=== PATIENT | male | born 1945 | race Caucasian/White ===

== ENCOUNTER 2018-05-06 10:29 | Observation (INO) | payer BC ==
[2018-05-06] VITALS (18 sets, daily range): BP systolic 124–159; BP diastolic 38–84
[~2018-05-06] VITALS: Ht 182.9 cm; Wt 104.3 kg
--- NOTE | ~2018-05-06 | H ---
[address] [address] HISTORY AND PHYSICAL Name: ANGEL JONES Room: [address] Dominik Eli#: [id number] Admission: 05/06/18 Attend Phys: Mehul Fox MD Discharge: 05/07/18 Date of : 47 Report #: [id number] THIS REPORT FOR: //name// Please refer to the History and Physical performed in the physician's office. By: 0658Medical Records Staff ISABEL /BROOKE
[2018-05-06 12:53] LABS: HEMATOCRIT 47.8 % (42.0-52.0); HEMOGLOBIN 16.5 gm/dL (14.0-18.0); MCH 32.2 pg (26.0-34.0); MCHC 34.5 g/dL (28.0-37.0); MCV 93.2 fL (80.0-100.0); MPV 8.3 fl. (7.2-11.1); RBC 5.13 mil/uL (4.50-6.00); RDW-CV 13.9 % (10.5-14.5); WBC 10.2 thou/uL (4.0-11.0)
[2018-05-06 13:04] LABS: ANION GAP 8 mmol/L (7-16); BUN 13 mg/dL (7-18); CALCIUM 8.9 mg/dL (8.5-10.1); CHLORIDE 100 mmol/L (98-107); CO2 27 mmol/L (21-32); GLUCOSE 111 mg/dL (70-99); POTASSIUM 3.9 mmol/L (3.5-5.1); SODIUM 135 mmol/L (136-145)
[2018-05-06] MEDS ORDERED: KAPSPARGO SPRIN50 MG PO (13:04)
[2018-05-06] MEDS ORDERED: DILTIAZEM 24HR120 M2 PO (13:04)
[2018-05-06 13:05] LABS: APTT 29.8 Seconds (25.0-31.3); INR 1.1; PROTIME 11.1 Seconds (9.20-11.50)
[2018-05-06] MEDS ORDERED: ATORVASTATIN CA40 MG PO (13:05)
[2018-05-06] MEDS ORDERED: PROPAFENONE HC425 MG PO (13:05)
[2018-05-06] MEDS ORDERED: ASPIR 8181 MG PO (13:06)
[2018-05-06 13:08] LABS: ALBUMIN 4.1 g/dL (3.4-5.0); ALKALINE PHOSPHATASE 92 U/L (46-116); CHOLESTEROL 145 mg/dL (<200); HDL CHOLESTEROL 55 mg/dL (>40); LDL CHOLESTEROL 65 mg/dL (<100); SGOT 16 U/L (15-37); SGPT 42 U/L (30-65); TC:HDL 2.6 Ratio (Not establshd); TOTAL BILIRUBIN 0.9 mg/dL (<0.1-1.0); TOTAL PROTEIN 7.4 g/dL (6.4-8.2); TRIGLYCERIDE 127 mg/dL (<150); VLDL 25 mg/dL (<40)
[2018-05-06 13:09] LABS: SERUM ASSESSMENT Clear
--- NOTE | 2018-05-06 16:52 | CARD ---
[address] [address] CARDIAC CATH REPORT Name: ANGEL JONES Room: [address] MJefferyRJeffery#: [id number] Admission: 05/06/18 Attend Phys: Mehul Fox MD Discharge: Date of : 47 Report #: [id number] THIS REPORT FOR: //name// APPROVED REPORT Study performed: 05/06/2018 13:54:46 Patient Details The patient is a 72 year-old male Event Personnel Mehul Fox Sanipractic Physician, Mariola Cummings RN Shoe Reconditioner, Israel Nuno (R) Monitor, Senia Montaño RTR Scrub, Senia Montaño RTR Scrub, Harvey Meneses Labeler, Mike Reyes Monitor Procedures Performed Left Heart Cath w/or w/o Coronaries [id number] [facility] w/wo Plasty Single RCA [id number] Hemostasis w/ Angioseal Indication Positive stress test Risk Factors Obesity, Hypercholesterolemia Admission/Lab Medications/Medications given during procedure Aspirin, Platelet Aff. Inhib., Angiomax bolus and infusion Procedure Narrative The patient was brought electively to the Cardiac Catheterization Laboratory and was prepped and draped in a sterile manner. The right wrist was infiltrated with 2% Lidocaine subcutaneous anesthesia. A Broadalbin 6 FR sheath was inserted into the RFA. Coronary angiography was performed using coronary diagnostic catheters. The right coronary system was accessed and visualized with a TIG Diagnostic catheter. The left coronary system was accessed and visualized with a TIG Diagnostic catheter. The left ventricle was accessed and visualized with a Diagnostic catheter. Left ventricular/Aortic Valve gradient assessed via catheter pullback. Pre-demployment femoral angiogram was performed . The patient tolerated the procedure well and there were no complications associated with the procedure. There was no hematoma[place] [address] CARDIAC CATH REPORT Name: ANGEL JONES Room: [address] M.R.#: [id number] Admission: 05/06/18 Attend Phys: Mehul Fox MD Discharge: Date of : 47 Report #: [id number] Fentanyl 75 mcg Fluoro Time: 30.3 minutes Dose: DAP 978144 cGycm2 140 mGy Contrast Type and Amount: Visipaque 320 ml Diagnostic Cath Left Main 0% narrowing LAD 20% mid LAD narrowing Circumflex 30% mid circumflex narrowing Right Coronary 95% mid right coronary stenosis surrounding the acute margin Left Ventriculography The left ventricle is normal in size with normal contractility. The left ventricular ejection fraction is estimated to be 65-70%. Left ventricular wall motion abnormalities are not present. There is no mitral insufficiency. Hemodynamics The aortic pressure is 123/63 mmHg with a mean of 89 mmHg. The left ventricular pressure is 102/-1 mmHg with a mean of mmHg. The left ventricular end diastolic pressure is 10 mmHg. There was no gradient across the aortic valve upon pullback. PCI Technique Lesion Anticoagulation was achieved with Angiomax. Percutaneous coronary intervention was performed on the mid right coronary artery. The lesion stenosis prior to intervention was 95% with ANGELITO 2 flow. A 6F 3DRC Guide Catheter was used to engage the ostium. A IG: BMW 190cm Interventional Guidewire was used to cross the lesion. BALLOON DILATION A Balloon catheter NC Trek RX 3.0 X 12 was inserted and inflated up to 16.00atm for 9seconds. STENT DEPLOYMENT A stent Xience Erica 2.5X28mm was inserted and inflated up to 20.00atm for 6seconds. POST STENT DEPLOYMENT BALLOON DILATION A Balloon catheter NC Trek RX 3.0 X 12 was inserted and inflated up to 14-20atm for 10seconds. Final angiography reveals 0 % stenosis with [place]GELITO 3 [place] [address] CARDIAC CATH REPORT Name: ANGEL JONES Room: [address]#: [id number] Admission: 05/06/18 Attend Phys: Mehul Fox MD Discharge: Date of : 47 Report #: [id number] COMMENTS The severely stenosed mid right coronary artery was dilated with a 1.2 x 12 and subsequently a 2.0 x 12 balloons and prior to stent deployment Conclusion #1 significant coronary artery disease characterized by the following: A 95% irregular stenosis of the mid right coronary artery surrounding the acute margin B 20% mid LAD narrowing C 30% midcircumflex narrowing #2 normal left ventricular systolic function, estimated ejection fraction being 65-70% #3 normal left-sided hemodynamic study #4 successful percutaneous coronary intervention with deployment of a drug-eluting stent at the site of 95% mid right coronary stenosis with 0% residual narrowing and ANGELITO-3 flow to the distal vessel Recommendations Cardiac Risk Reduction Program Aggressive Medical Therapy Medications Administered Aspirin (any) Prasugrel Diagnostic Cath Approved by: Mehul Fox MD Date/Time: 05/06/2018 16:51:55 <ELECTRONICALLY SIGNED> By: Harvey Meneses MD, FACC 05/06/181651 51 51Harvey Meneses MD, FACC /INF
--- NOTE | 2018-05-06 17:46 | NUR ---
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 PT HAS CATH SITE AT RIGHT GROIN, SITE IS SOFT WITH CLEAN DRESSING. PT WAS EDUCATED ON KEEPING LEG STRAIGHT AND LYING FLAT. PT ALSO HAS SITE AT RIGHT WRIST THAT WAS ACCESSED BUT DR MARTÍNEZ FELT THE SITE WAS NOT RELIABLE AND WENT THROUGH THE GROIN. LS CTA, BS ACTIVE X4, PEDAL PULSES NORMAL. PT ORIENTED TO ROOM AND CALL LIGHT, POST CATH VS TO BE COMPLETED. PT TO LAY FLAT UNTIL 2100.
--- NOTE | 2018-05-06 18:10 | NUR ---
REMOVED AIR FROM R RADIAL. 11ML'S TOTAL. PT MAY HAVE REMOVED AFTER I HOUR.
[2018-05-07 00:30] VITALS: BP 129/73
--- NOTE | 2018-05-07 02:06 | NUR ---
PATIENT RESTED IN BED, NO ACUTE CHANGES. PATIENT DID NOT SHOW SIGNS OF BLEEDING OR DISTRESS. PATIENT DID NOT COMPLAIN OF PAIN. CALL LIGHT WITH IN REACH, HOURLY ROUNDING OBSERVED, BED ALARM ON.
[2018-05-07 04:00] VITALS: BP 135/71
[2018-05-07 05:03] LABS: MCH 32.2 pg (26.0-34.0); MCHC 34.8 g/dL (28.0-37.0); MCV 92.4 fL (80.0-100.0); MPV 8.5 fl. (7.2-11.1); RBC 4.44 mil/uL (4.50-6.00)
[2018-05-07 05:15] LABS: HEMOGLOBIN 14.3 gm/dL (14.0-18.0)
[2018-05-07 05:27] LABS: ALBUMIN 3.1 g/dL (3.4-5.0); CALCIUM 8.3 mg/dL (8.5-10.1); CREATININE 0.8 mg/dL (0.6-1.3); POTASSIUM 3.8 mmol/L (3.5-5.1); TOTAL BILIRUBIN 0.9 mg/dL (<0.1-1.0); TOTAL PROTEIN 5.8 g/dL (6.4-8.2); TROPONIN-I LEVEL 0.54 ng/mL (<0.06)
[2018-05-07 08:00] VITALS: BP 141/74
[2018-05-07 09:30] VITALS: BP 147/82
[2018-05-07 10:09] VITALS: BP 141/74
--- NOTE | 2018-05-07 10:22 | EKG ---
[place] [address] ELECTROCARDIOGRAM REPORT Name: ANGEL JONES [address]: [address]#: [id number] Admission: 05/06/18 Attend Phys: Mehul Fox MD Discharge: Date of : 47 Report #: [id number] THIS REPORT FOR: //name// [facility] Test Date: 2018-05-06 Test Time: 12:53:06 Pat Name: ANGEL JONES Department: Room: [facility] Gender: Meters Superintendent: [facility] : 1945 Requested By: Mehul Fox Order Number: [id number] Loretta MD: Harvey Meneses Measurements Intervals [place] Rate: 69 P: 43 PA: 226 QRS: 12 QRSD: 91 T: 34 QT: 401 QTc: 430 Interpretive Statements Sinus rhythm Prolonged PA interval Low voltage, precordial leads No previous ECG available for comparison Electronically Signed On 05-07-2018 10:22:06 NEUROPSYCHOLOGIST by Harvey Meneses [email or web address] <ELECTRONICALLY SIGNED> By: Harvey Meneses MD, [facility] 05/07/18 1022 1253 1253 Harvey Meneses MD, FACC /EPI
--- NOTE | 2018-05-07 10:24 | EKG ---
[place] [address] ELECTROCARDIOGRAM REPORT Name: ANGEL JONES Room: [address]R.#: [id number] Admission: 05/06/18 Attend Phys: Mehul Fox MD Discharge: Date of : 47 Report #: [id number] THIS REPORT FOR: //name// [facility] Test Date: 2018-05-06 Test Time: 16:42:51 Pat Name: ANGEL DEVINEY Department: Room: [facility] Gender: M Warehouse Receiving Clerk: [facility] : 1945 Requested By: Harvey Meneses Order Number: [id number] Loretta MD: Harvey Meneses Measurements Intervals [place] Rate: 74 P: 52 GA: 218 QRS: 14 QRSD: 89 T: 34 QT: 398 QTc: 442 Interpretive Statements Sinus rhythm Borderline prolonged GA interval Low voltage, precordial leads Consider anterior infarct No previous ECG available for comparison Electronically Signed On 05-07-2018 10:24:15 UNIVERSITY PROFESSOR by Harvey Meneses [email or web address] <ELECTRONICALLY SIGNED> By: Harvey Meneses MD, [facility] 05/07/18 1024 41 41 Harvey Meneses MD, FAC /EPI
--- NOTE | 2018-05-07 10:25 | EKG ---
[place] [address] ELECTROCARDIOGRAM REPORT Name: ANGEL JONES Room: [address]R.#: [id number] Admission: 05/06/18 Attend Phys: Mehul Fox MD Discharge: Date of : 47 Report #: [id number] THIS REPORT FOR: //name// [facility] Test Date: 2018-05-07 Test Time: 04:02:33 Pat Name: ANGELRabia JONES Department: Room: [facility] Gender: M Family Support Worker: XF : 1945 Requested By: Harvey Meneses Order Number: [id number] Loretta MD: Harvey Meneses Measurements Intervals [place] Rate: 77 P: 61 SC: 198 QRS: -8 QRSD: 98 T: 41 QT: 388 QTc: 440 Interpretive Statements Sinus rhythm Inferior infarct, old Consider anterolateral infarct Baseline wander in lead(s) III,aVF No previous ECG available for comparison Electronically Signed On 05-07-2018 10:25:40 LINE CREWMAN by Harvey Meneses [email or web address] <ELECTRONICALLY SIGNED> By: Harvey Meneses MD, [facility] 05/07/18 1025 040 040 Harvey Meneses MD, FACC /EPI
[2018-05-07] MEDS ORDERED: NITROGLYCERIN0.4 MG SUBLING (10:28)
[2018-05-07] MEDS ORDERED: EFFIENT10 MG PO (10:29)
--- NOTE | 2018-05-07 11:19 | NUR ---
VSS, ASSUMED CARE OF PT IN THE AM, ASSESSMENT PERFORMED AND CHARTRED, FALLS PRECAUTIONS IN PLACE AND CALL LIGHT IN RECAH, PT IS A&O4 AND DENIES ANY PAIN AND IS ON RA, TRACING AFIB ON THE MONITOR, PT CATH SIT ON HIS RIGHT WRIST AND GRION, ARE C/D/I. PT GOAL IS TO D/C TO HOME, AT THIS TIME I HAVE COMPLETED HOURLY ROUNDS PROVITED D/C SCRIPTS, AND D/C PAPERS, GAVE D/C INSTRUCTIONS TOOK OUT IV AND TELE MONITOR, PT DENIES ANY QUESTIONS OR CONCERNS AT TIME PT WALKED OUT WITH SPOUCE TO CAR.
--- NOTE | 2018-05-07 13:42 | D ---
[address] [address] DISCHARGE SUMMARY Name: ANGEL JONES Room: [address] Dominik Eli#: [id number] Admission: 05/06/18 Attend Phys: Mehul Fox MD Discharge: 05/07/18 Date of : 47 Report #: [id number] THIS REPORT FOR: //name// CC: Mehul Salazar DATE OF SERVICE: 05/07/2018 FINAL DIAGNOSES: 1. Unstable angina. 2. Coronary artery disease, status post placement of a drug-eluting stent in the mid right coronary artery 99% stenosis. 3. Normal left ventricular function. 4. Atrial fibrillation, paroxysmal. HOSPITAL SUMMARY: The patient had an outpatient stress test which was ordered on complaints of chest discomfort, which was abnormal. He underwent cardiac catheterization. Initially, we performed the diagnostic procedure through the right radial artery, but in order to more appropriately seat the guide catheter, he had to be transitioned to a right femoral artery system. This procedure went well and he had placement of a single drug-eluting stent in the mid RCA, it was a 28 mm long stent. His anticoagulation for his paroxysmal atrial fibrillation was held for the procedure. He will be discharged on Effient and aspirin. We elected to hold his anticoagulation for AFib. He had been in sinus rhythm and is maintained in sinus rhythm on propafenone. FINAL DISCHARGE MEDICATIONS: Aspirin 81 mg daily, prasugrel 10 mg daily, Cardizem 120 mg daily, propafenone and Toprol-XL 50 mg daily. His LDL was 65, so he will be discharged on atorvastatin 40 mg daily. <ELECTRONICALLY SIGNED> By: Mehul Fox MD, FACC 05/07/18 1342 0949 1035Mehul Fox MD, FACC /nt
== END 2018-05-07 11:57 | disposition home or self-care (01) ==
LOC: M.CL 10:29 → M.TBA-CV 15:55 → M.2W 15:55 → M.TBA-CV 15:55 → M.2W 16:28
PROVIDERS: Internal Medicine; ADMIT Internal Medicine Cardiovascular Disease
DX: I25.110 Atherosclerotic heart disease of native coronary artery with unstable angina pectoris (principal); I48.0 Paroxysmal atrial fibrillation; I10 Essential (primary) hypertension; E78.00 Pure hypercholesterolemia, unspecified; E66.09 Other obesity due to excess calories; Z87.891 Personal history of nicotine dependence; Z79.82 Long term (current) use of aspirin; Z79.899 Other long term (current) drug therapy; Z79.01 Long term (current) use of anticoagulants